=== PATIENT | female | born 1960 | race Caucasian/White ===

== ENCOUNTER → 2016-11-14 | Outpatient (CLI) | payer BC ==
[2016-11-14 10:37] LABS: FREE T4 (FREE THYROXINE) 0.53 ng/dL (0.93-1.71)
== END ==
LOC: LAB 08:53
PROVIDERS: ATTEND Pediatrics Pediatric Endocrinology
DX: E03.9 Hypothyroidism, unspecified (principal); E55.9 Vitamin D deficiency, unspecified
CPT/HCPCS: 82306; 84439; 84443; 84481